=== PATIENT | male | born 1960 | race Caucasian/White ===

== ENCOUNTER 2021-05-06 23:19 | Emergency (ER) | payer SELFPAY ==
[2021-05-07] VITALS: PULSE 87; RESP 20; TEMP 36.9; O2SAT 98
[2021-05-07 00:06] VITALS: BP 126/98; PULSE 87; RESP 18; TEMP 36.9; O2SAT 98
--- NOTE | 2021-05-07 00:09 | PC.NURSE ---
2359-Cleaned patient's left hand, 4th digit, with sterile water, hibclense, and safe cleanse. Patient tolerated well.
--- NOTE | 2021-05-07 00:25 | ED.WOUNDLAC ---
HPI - Wound/Laceration General Chief Complaint: Wound/Laceration Stated Complaint: Laceration Source: patient Mode of arrival: ambulatory History of Present Illness HPI narrative: this is a 52-year-old gentleman that presents with superficial laceration to the left 4th finger approximately 2cm in length non gaping well-approximated currently no bleeding occurred earlier today and is not up-to-date with his tetanus. Currently no fever chills had good range of motion is finger with no numbness or tingling. Onset (ago): hour(s) Location: other ( finger laceration) Extremity Location: Left: hand ( left 4th finger) Place: home Patient tetanus UTD: No Context: accidental Related Data Home Medications Medication Instructions Recorded Confirmed oxycodone-acetaminophen 1 tablet PO BID 05/07/21 05/07/21 Allergies Allergy/AdvReac Type Severity Reaction Status Date / Time No Known Allergies Allergy Verified 05/07/21 00:27 Review of Systems Review of Systems: All systems reviewed & are unremarkable except as noted in HPI and below PMFSH Past Medical History Medical History Chronic back pain Exam Const: General: no acute distress and alert Orientation/consciousness: patient oriented x3 HENMT: Head: normal to inspection Eyes: Conjunctivae: conjunctivae normal Pupils: Equal, round and reactive pupils present Neck: Neck: normal visual inspection Chest: Chest palpation & inspection: normal inspection of the chest Resp: Effort & Inspection: normal respiratory effort Auscultation: clear to auscultation bilaterally Cardio: Rate: regular rate Rhythm: regular rhythm GI: GI Palp: Yes Soft to palpation Percussion: Yes normal to percussion Back/Spine/Pelvis: Back: no CVA tenderness Skin: General skin exam: normal color Rashes: no rashes Other: approximately 2cm early a laceration left 4th finger Neuro: General: patient oriented x3 and moves all extremities Extrem: General: normal to inspection and no pedal edema Psych: Mental Status: mental status grossly normal Course Course Emergency Course: patient had Dermabond applied to his left 4th finger laceration and was updated with his tetanus vaccine Vital Signs Vital signs: Vital Signs Temperature 36.9 C 05/07/21 00:06 Pulse Rate 87 05/07/21 00:06 Respiratory Rate 18 05/07/21 00:06 Blood Pressure 126/98 H 05/07/21 00:06 Pulse Oximetry 98 05/07/21 00:06 Temperature 36.9 C 05/07/21 00:06 Pulse Rate 87 05/07/21 00:06 Respiratory Rate 18 05/07/21 00:06 Blood Pressure 126/98 H 05/07/21 00:06 Pulse Oximetry 98 05/07/21 00:06 Procedures Laceration Laceration 1: Date: 05/07/21 Site: hand ( left 4th finger) Side (If applicable): left Size (cm): 2 Description: linear Pre-repair: irrigated ====== Skin Level ====== Skin layer closed with: dermabond ====== Subcutaneous Layer ====== ====== Muscle Layer ====== ====== Tendon Layer ====== Critical Care Time Critical Care Time Critical Care Time: No Discharge Plan Discharge Clinical Impression: Laceration Patient Disposition: Home, Self-Care Condition: Stable Instructions: Antibiotic Form, Laceration (ED) Additional Instructions: follow-up with primary care physician if symptoms persist or worsen. Prescriptions: No Action oxycodone-acetaminophen 10-325 mg tablet 1 tablet PO BID RF: 0 Follow-up/Referrals: UNKNOWN,DOCTOR [Primary Care Provider] - Time of Disposition: :
[2021-05-07 00:40] VITALS: BP 130/90; PULSE 82; RESP 20; O2SAT 98
[2021-05-07] MEDS: TETANUS,DIPHTHERIA,AC PERTUSSIS ADULT 0.5 ML (ADACEL) IM (00:40)
== END 2021-05-07 00:42 | disposition home or self-care (01) ==
PROVIDERS: Emergency Provider Emergency Medicine
DX: S61.215A Laceration without foreign body of left ring finger without damage to nail, initial encounter (principal); W45.8XXA Other foreign body or object entering through skin, initial encounter
CPT/HCPCS: 12001; 90471; 90715; 99282

== ENCOUNTER 2024-12-12 14:03 | Emergency (ER) | payer MEDICARE, SELFPAY ==
--- NOTE | ~2024-12-12 | US_ITS ---
EXAMINATION: US venous doppler [facility] DATE: 12/12/2024 14:56 INDICATION: left calf swelling . TECHNIQUE: Grayscale images without and with compression and Doppler images of the left lower extremi ty veins were obtained. COMPARISON: None FINDINGS: The left common femoral vein, profunda (deep) femoral vein, femoral vein, popliteal vein, peroneal v ein, posterior tibial veins, gastrocnemius vein, and greater saphenous vein are patent. Incidental no te of occlusion of the proximal-mid superficial femoral artery, with monophasic flow in the popliteal , posterior tibial, and peroneal arteries. 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 No evidenc e of deep venous thrombosis. Reviewed, dictated and finalized at location K. ON HEADER IMPRESSION: Incidental note of right superficial femoral artery occlusion, with distal niall nstitution. No evidence of deep venous thrombosis.
[2024-12-12 14:03] VITALS: BP 163/100; PULSE 86; RESP 18; TEMP 36.3; O2SAT 99
--- NOTE | 2024-12-12 14:21 | ED.LOWEXIN ---
HPI - Extremity Injury (Lower) General Chief Complaint: Extremity Injury, Lower Stated Complaint: left leg swelling Time Seen by Provider: 12/12/24 14:20 Source: patient Mode of arrival: ambulatory Limitations: no limitations History of Present Illness HPI Narrative: 64-year-old male with a history of arthritis of the hips and the knees on oxycodone presents to the ED with -- left calf pain and swelling off and on for the past 1 week. Unable to bear weight. No history of trauma. No prior history of DVTs. -- cramps of the bilateral lower extremities MD complaint: other ( left calf pain) Onset (ago): week(s) ( 1 week) Place: home Severity: severe Relieving factors: nothing Exacerbating factors: nothing Other symptoms: none Related Data Home Medications ?Medication ?Instructions ?Recorded ?Confirmed ?Last Taken ?Type oxycodone-acetaminophen 10 mg-325 1 tablet PO BID 05/07/21 05/07/21 Unknown History mg tablet Allergies Allergy/AdvReac Type Severity Reaction Status Date / Time No Known Allergies Allergy Verified 12/12/24 14:18 Review of Systems Review of Systems: All systems reviewed & are unremarkable except as noted in HPI and below Constitutional: Constitutional: Reports as per HPI and Reports no additional constitutional complaints Eyes: Eyes: Reports as per HPI and Reports no additional eye complaints ENT: Reports system reviewed and no additional complaints, except as documented and Reports as per HPI Cardiovascular: Cardiovascular: Reports as per HPI and Reports no additional cardiovascular complaints Respiratory: Respiratory: Reports as per HPI and Reports no additional respiratory complaints Gastrointestinal: Gastrointestinal: Reports as per HPI and Reports no additional gastrointestinal complaints Genitourinary: Genitourinary: Reports no additional male genitourinary complaints and Reports as per HPI Musculoskeletal: Comments: left calf pain and swelling. Pain in left popliteal fossa able to bear weight Integumentary/Breasts: Skin/Breast: Reports system reviewed and no additional complaints, except as docu and Reports as per HPI Neurologic: Reports system reviewed and no additional complaints, except as documented and Reports as per HPI Psychiatric: Psychiatric: Reports no additional psychiatric complaints and Reports as per HPI Endocrine: Endocrine: Reports no additional endocrine complaints and Reports as per HPI Hematologic/Lymphatic: Hematologic/Lymphatic: Reports no additional hematologic/lymphatic complaints and Reports as per HPI Allergic/Immunologic: Allergic/Immunologic: Reports no additional allergic/immunologic complaints and Reports as per HPI [facility] Past Medical History Medical History Chronic back pain Exam Const: General: ill appearing Orientation/consciousness: patient oriented x3 Limitations: no limitations HENMT: Head: normal to inspection Ears: external ears normal Face/Nose/Sinus: Normal external nose present Face and sinus: normal facial exam Mouth: Yes Normal oral and palatal mucosa present Throat: posterior oropharynx normal Eyes: Conjunctivae: conjunctivae normal Pupils: Equal, round and reactive pupils present EOM: EOMs intact bilaterally Direct Ophthalmoscopy: no photophobia Neck: Neck: normal visual inspection, no lymphadenopathy and no meningeal signs Resp: Effort & Inspection: normal respiratory effort Auscultation: diminished lung sounds Cardio: Rate: regular rate Rhythm: regular rhythm GI: GI Palp: Yes Soft to palpation Auscultation: normal bowel sounds Other: no tenderness /rigidity / rebound. : General: Yes no CVA tenderness Back/Spine/Pelvis: Back: no CVA tenderness Skin: General skin exam: normal color Rashes: no rashes Wounds: no wounds Neuro: General: patient oriented x3, moves all extremities, no meningeal signs, no focal motor deficits and CN's II-XI intact bilaterally Cranial nerves: Yes Nystagmus not present Speech: normal speech Extrem: Other: Left calf swelling. Tenderness on palpation. Distal pulses are intact. Psych: Mental Status: mental status grossly normal Affect: normal affect Attitude: cooperative Course Course Emergency Course: Left calf pain-- venous Doppler did not show any evidence of DVT but revealed occlusion of the superficial femoral artery. The patient has ischemia without tissue loss or infection. S start the patient on Plavix, statins, avoid weight-bearing on the left side and follow-up with vascular surgery. Discussed with Dr. Edmondson vascular surgery at [facility] in [facility]. Discussed with vascular surgeon. Patient does not need emergent transfer. Scheduled the patient for an outpatient visit at [place] on December 21 at 8:45 a.m. repeat potassium was noted to be 4.7. Vital Signs Vital signs: Vital Signs Temperature 36.3 C L 12/12/24 14:03 Pulse Rate 86 12/12/24 14:03 Respiratory Rate 18 12/12/24 14:03 Blood Pressure 163/100 H 12/12/24 14:03 Pulse Oximetry 99 12/12/24 14:03 Oxygen Delivery Room Air 12/12/24 14:03 Temperature 36.3 C L 12/12/24 14:03 Pulse Rate 86 12/12/24 14:03 Respiratory Rate 18 12/12/24 14:03 Blood Pressure 163/100 H 12/12/24 14:03 Pulse Oximetry 99 12/12/24 14:03 Oxygen Delivery Room Air 12/12/24 14:03 MDM - Extremity Injury (Lower) MDM Narrative Medical decision making narrative: Left leg ischemia-- No tissue loss or infection. Differential Diagnosis Differential diagnosis: Likely other ( DVT) Lab Data Attestation: I reviewed the patient's lab results. 12/12/24 14:36 12/12/24 15:28 Labs: Lab Results 12/12/24 12/12/24 12/12/24 Range/Units 14:35 14:36 15:28 WBC 11.2 H (4.8-10.8) K/mm3 RBC 5.41 (4.70-6.10) M/mm3 Hgb 16.2 (14.0-18.0) g/dL Hct 50.1 (40.0-54.0) % MCV 92.6 (78.0-102.0) fL MCH 29.9 (27.0-31.0) pg MCHC 32.3 (32-36) g/dL RDW 14.3 (11.6-14.4) % Plt Count 358 (150-420) K/mm3 MPV 9.5 (8.7-11.0) fl Immature Gran % (Auto) 0.4 H (0.0-0.0) % Neut % (Auto) 74.1 H (50.0-70.0) % Lymph % (Auto) 18.0 (18.0-42.0) % [place] % (Auto) 6.4 (2.0-11.0) % Eos % (Auto) 0.7 L (1.0-6.0) % Baso % (Auto) 0.4 (0.0-1.0) % Lymph # (Auto) 2.01 (1.10-4.50) K/mm3 [place] # (Auto) 0.72 (0.10-0.90) K/mm3 Eos # (Auto) 0.08 (0.02-0.50) K/mm3 Baso # (Auto) 0.04 (0.00-0.10) K/mm3 Abs Immat Gran (auto) 0.05 H (0.00-0.00) K/mm3 Absolute Neuts (auto) 8.29 H (1.70-7.20) K/mm3 Absolute Nucleated RBC 0.00 (0.00-0.00) K/mm3 Nucleated RBC % 0.0 (0-0.0) % D-Dimer 0.50 (0.19-0.50) mg/L Sodium 139 (136-145) mmol/L Potassium 5.4 H 4.7 (3.5-5.1) mmol/L Chloride 104 (98-108) mmol/L Carbon Dioxide 27 (21-32) mmol/L Anion Gap 8 (4-12) mmol/L BUN 20 H (7-18) mg/dL Creatinine 1.02 (0.70-1.30) mg/dL Estim Creat Clear Calc 90 ml/min Estimated GFR > 60 (59 - ) Glucose 140 H (70-99) mg/dL Calculated Osmolality 292 (285-295) mOsm/kg Uric Acid 7.1 (3.5-7.2) mg/dL Calcium 9.4 (8.5-10.1) mg/dL Total Bilirubin 0.4 (0.00-1.00) mg/dL AST 19 (15-37) U/L ALT 27 (16-63) U/L Alkaline Phosphatase 100 (46-116) U/L Total Creatine Kinase 224 (39-308) U/L Total Protein 7.6 (6.4-8.2) g/dL Albumin 3.9 (3.4-5.0) g/dL Discharge Plan Discharge Clinical Impression: Ischemic leg pain Patient Disposition: Home, Self-Care Condition: Stable Instructions: Antibiotic Form, Peripheral Vascular Disease (ED) Patient Language: French Prescriptions: New clopidogrel [Plavix] 75 mg tablet 75 mg PO DAILY Qty: 30 0RF atorvastatin [Lipitor] 40 mg tablet 40 mg PO HS Qty: 30 0RF No Action oxycodone-acetaminophen 10-325 mg tablet 1 tablet PO BID Follow-up/Referrals: Jatin,Darryl Worrell DO [Primary Care Provider] - Time of Disposition: 16:09
--- NOTE | 2024-12-12 14:36 | PC.NURSE ---
PT TO ULTRASOUND AT THIS TIME.
[2024-12-12 14:40] LABS: Basophils Absolute Auto 0.04 K/mm3 (0.00-0.10); Basophils Percent Auto 0.4 % (0.0-1.0); Eosinophils Absolute Auto 0.08 K/mm3 (0.02-0.50); Eosinophils Percent Auto 0.7 % (1.0-6.0); Hematocrit 50.1 % (40.0-54.0); Hemoglobin 16.2 g/dL (14.0-18.0); Immature Granulocyte Absolute 0.05 K/mm3 (0.00-0.00); Immature Granulocyte Percent A 0.4 % (0.0-0.0); Lymphocytes Absolute Auto 2.01 K/mm3 (1.10-4.50); Mean Corpuscular HGB Conc 32.3 g/dL (32-36); Mean Corpuscular Hemoglobin 29.9 pg (27.0-31.0); Mean Corpuscular Volume 92.6 fL (78.0-102.0); Mean Platelet Volume 9.5 fl (8.7-11.0); Monocytes Absolute Auto 0.72 K/mm3 (0.10-0.90); Monocytes Percent Auto 6.4 % (2.0-11.0); Neutrophils Absolute Auto 8.29 K/mm3 (1.70-7.20); Neutrophils Percent Auto 74.1 % (50.0-70.0); Platelet Count Result 358 K/mm3 (150-420); Red Blood Count 5.41 M/mm3 (4.70-6.10); Red Cell Distribution Width 14.3 % (11.6-14.4); White Blood Count 11.2 K/mm3 (4.8-10.8)
[2024-12-12 14:53] LABS: Uric Acid 7.1 mg/dL (3.5-7.2)
[2024-12-12 14:55] LABS: Alanine Aminotransferase 27 U/L (16-63); Albumin Level 3.9 g/dL (3.4-5.0); Alkaline Phosphatase 100 U/L (46-116); Anion Gap 8 mmol/L (4-12); Aspartate Amino Transferase 19 U/L (15-37); Bilirubin,Total 0.4 mg/dL (0.00-1.00); Blood Urea Nitrogen 20 mg/dL (7-18); Calcium 9.4 mg/dL (8.5-10.1); Carbon Dioxide 27 mmol/L (21-32); Chloride 104 mmol/L (98-108); Creatine Kinase 224 U/L (39-308); Estimated CRCL calculation 90 ml/min; Estimated Glomerular Filt Rate > 60; Glucose 140 mg/dL (70-99); Osmolality Calculated 292 mOsm/kg (285-295); Potassium 5.4 mmol/L (3.5-5.1); Sodium 139 mmol/L (136-145); Total Protein 7.6 g/dL (6.4-8.2)
--- OUTSIDE RECORDS SUMMARY | 2024-12-12 15:06 | XMS_ITS | Encounter Summary ---
Author Organization [facility] Address Formerly [facility]. 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
--- OUTSIDE RECORDS SUMMARY | 2024-12-12 15:06 | XMS_ITS | Clinical Summary ---
Author Organization [facility] Address [address] [place] [id number] Care Team Providers Care Oncology Nurse Name Role Phone Darryl Steiner DO Primary Care Provider Allergies No known active allergies Medications oxyCODONE-aceta minophen (PERCOCET) 5-325 mg per tablet Take 1 tablet by mouth every 6 (six) hours as needed for pain 120 tablet 5 Active oxyCODONE-aceta minophen (PERCOCET) 5-325 mg per tablet Take 1 tablet by mouth every 6 (six) hours as needed for pain 120 tablet 5 Active oxyCODONE-aceta minophen (PERCOCET) 5-325 mg per tablet Take 1 tablet by mouth every 6 (six) hours as needed for pain 120 tablet 5 12/08/19 25 Discontinu ed(Reorder ) Active Problems Problem Noted Date Diagnosed Date Routine physical examination 06/20/2024 Overview (06/20/2024): March 04, 2023 June 20, 2024 Hyperlipidemia 12/03/2018 IFG (impaired fasting glucose) 12/03/2018 Chronic narcotic dependence (CMS/HCC) 11/10/2017 Overview (06/20/2024): Chronic neck and low back pain with prior cervical and lumbar spine surgery with hardware placement Requires daily narcotic medication Continue to monitor medication usage Chronic pain 11/10/2017 Overview (06/20/2024): Chronic neck and low back pain with prior cervical and lumbar spine surgery with hardware placement Requires daily narcotic medication Continue to monitor medication usage Hypertension 11/10/2017 Overview (06/20/2024): Chronic and overall stable not on medication Assessment & Plan (06/20/2024 2:35 PM CDT): His anxiety is high and he just found out that 1 of his brothers 6-8 years ago Backache 08/28/2017 Overview (06/20/2024): Chronic low back pain with prior surgery and fusion with hardware placement approximately [id number] Chronic pain requires daily narcotic medication Continue same medications Neck pain 08/28/2017 Overview (06/20/2024): Chronic neck pain status post fusion with hardware placement Requires daily narcotic medication Continue same medications Resolved Problems Problem Noted Date Diagnosed Date Resolved Date Cellulitis 05/28/2020 06/20/2024 Encounters Date Type Department Care Team Description 10/26/2024 Telephone [facility] Primary Care [facility] [address] [phone] Darryl Steiner, DO Call Back from Last 3 Months Immunizations Name Administration Dates Next Due Influenza, Unspecified 08/15/2023 Tdap 05/28/2017 Family History Medical History Relation Name Comments Migraines Father brain tumor Father Depression Mother Hypertension Mother Relation Name Status Comments Father Mother Social History Tobacco Use Types Packs/Day Years Used Date Smoking Tobacco: Every Day Cigarettes AUDIT-C Answer Date Recorded Q1: How often do you have a drink containing alc ohol? 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 Gender Identity Not on file Sexual Orientation Not on file Obstetrics History Last Filed Vital Signs Vital Sign Reading Time Taken Comments Blood Pressure 140/100 06/20/2024 2:08 PM CDT Pulse 92 06/20/2024 2:08 PM CDT Temperature 36.1 ??C (97 ??F) 06/20/2024 2:08 PM CDT Respiratory Rate 16 06/20/2024 2:08 PM CDT Oxygen Saturation 97% 06/20/2024 2:08 PM CDT Inhaled Oxygen Concentration - - Weight 112.5 kg (248 lb) 06/20/2024 2:08 PM CDT Height 189.2 cm (6' 2.5 ) 06/20/2024 2:08 PM CDT Body Mass Index 31.42 06/20/2024 2:08 PM CDT Plan of Treatment Health Maintenance Due Date Last Done Comments Colon Cancer Screening-Colonoscopy 1962 Pneumococcal vaccine <65 (1 of 2 - PCV) 1968 Hepatitis B Screening 1980 Covid-19 Vaccine (3 - season) 2024, 02/07/2021 Influenza Vaccine (#1) 2024 08/15/2023 Depression Screening 06/20/2025 06/20/2024 Regular Well Visit/Exam 18-64 06/20/2025 06/20/2024 Prostate Cancer Screening-PSA 06/20/2026 06/20/2024 DTaP/Tdap/Td Vaccine (3 - Td or Tdap) 05/07/2031, 05/28/2017 Hepatitis C Screening Completed 06/20/2024 Zoster Vaccine Discontinued Procedures Procedure Name Priority Date/Time Associated Diagnosis Comments STOOL DNA ? COLOGUARD Routine 10/17/2024 10:00 AM CERAMIC TILE INSTALLATION HELPER Colon cancer screening HEPATITIS C ANTIBODY Routine 06/20/2024 3:00 PM CDT Need for hepatitis C screening test PSA SCREEN Routine 06/20/2024 3:00 PM CDT Prostate cancer screening from Last 3 Months or Most Recently Relevant to Health Maintenance Results * (ABNORMAL) Stool DNA - Cologuard (10/17/2024 10:00 AM CERAMIC TILE INSTALLATION HELPER) Stool DNA - Cologuard Positive( A) Negative [facility] (CLIA #:[id number]) Comment: POSITIVE TEST RESULT. A positive Cologuard result should be followed with a colonoscopy or visual examination of the colon. The normal value (reference range) for this assay is negative. TEST DESCRIPTION: Composite algorithmic analysis of stool DNA-biomarkers with hemoglobin immunoassay. ?? Quantitative values of individual biomarkers are not reportable and are not associated with individual biomarker result reference ranges. Cologuard is intended for colorectal cancer screening of adults of either sex, 45 years or older, who are at average-risk for colorectal cancer (CRC). Cologuard has been approved for use by the U.S. FDA. The performance of Cologuard was established in a cross sectional study of average-risk adults aged 50-84. Cologuard performance in patients ages 45 to 49 years was estimated by sub-group analysis of near-age groups. Colonoscopies performed for a positive result may find as the most clinically significant lesion: colorectal cancer [4.0%], advanced adenoma (including sessile serrated polyps greater than or equal to 1cm diameter) [20%] or non- advanced adenoma [31%]; or no colorectal neoplasia [45%]. These estimates are derived from a prospective cross-sectional screening study of 10,000 individuals at average risk for colorectal cancer who were screened with both Cologuard and colonoscopy. (Giorgio Beckford et al, N Engl J Med 2014;370(14):7330-4158.) Cologuard may produce a false negative or false positive result (no colorectal cancer or precancerous polyp present at colonoscopy follow up). A negative Cologuard test result does not guarantee the absence of CRC or advanced adenoma (pre-cancer). The current Cologuard screening interval is every 3 years. ([place] Cancer Society and U.S. Multi-Society Task Force). Cologuard performance data in a 10,000 patient pivotal study using colonoscopy as the reference method can be accessed at the following location: [email or web address].InSample/results. Additional description of the Cologuard test process, warnings and precautions can be found at www.[facility].com. Stool 10/17/2024 10:0 0 AM CERAMIC TILE INSTALLATION HELPER 10/19/2024 9:59 AM CERAMIC TILE INSTALLATION HELPER Darryl Steiner DO LAB BODY FLUIDS AND ST OOLS ORDERABLES Final Result Performing Organization Address [facility] Co de Phone Number [facility] (CLIA #:[id number]) Aarti Espinal[place] [address] * PSA screen (06/20/2024 3:00 PM CDT) PSA-Total 1.12 <=5.40 ng/mL Comment: Interpretive Data ?AGE ? SEX ?REFERENCE INTERVAL 0 minutes-150 years ?Female ?None 0 minutes-49 years ? Male ?None ? 50-59 years ? Male ?0-3.90 ? 60-69 years ? Male ?0-5.40 ? 70-79 years ? Male ?0-6.20 ? 80-150 years ?Male ?0-6.20 The Jimbo PSA Total assay procedure was used. Results from different manufacturers or methods may not be comparable. Serial testing should be performed using the same method. Current interpretive data last revised 22. Testing performed by: [facility], [address] [place] [address]., [id number] Blood 06/20/2024 3:00 PM CDT 06/20/2024 4:32 PM CDT Darryl Steiner DO LAB BLOOD ORDERABLES F inal Result Performing Organization Address [facility] de Phone Number [facility] [address] [facility] Department [place] [address] * Hepatitis C antibody Blood (06/20/2024 3:00 PM CDT) Hep C Ab Nonreactive Nonreactive Comment: Antibodies to HCV not detected. Does NOT exclude the possibility of recent exposure to HCV. Current interpretive data was last revised on 22 Interpretive Data Nonreactive: Antibodies to HCV not detected. Does NOT exclude the possibility of recent exposure to HCV. Equivocal: Equivocal for HCV antibodies. Supplemental molecular testing will be automatically performed to determine infection status in accordance with current CDC screening recommendations. ?? Reactive: Positive for HCV antibodies. ??This may represent current or past HCV infection. Supplemental molecular testing will be automatically performed to determine ??current infection status in accordance with current CDC screening recommendations. Interpretive data was last revised on 2020. Blood 06/20/2024 3:00 PM CDT 06/20/2024 7:16 PM CDT Darryl Steiner DO LAB MICROBIOLOGY - GEN ERAL ORDERABLES Final Result [facility] [address] [facility] Department [place] [address] from Last 3 Months or Most Recently Relevant to Health Maintenance Insurance MEDICARE [facility] MEDICARE Address: [facility] [address] [place] [address] Care Teams Oncology Nurse Relationship Specialty Start Date End Date Darryl Steiner DO [address] [place] [id number] PCP - General Family Medicine 02/23/24
--- OUTSIDE RECORDS SUMMARY | 2024-12-12 15:06 | XMS_ITS | Encounter Summary ---
Author Organization [facility] Address [address] [place] [address]. 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
--- OUTSIDE RECORDS SUMMARY | 2024-12-12 15:06 | XMS_ITS | Clinical Summary ---
Author Organization [facility] Address [address] [place] [address]. [place], [place] [address] [place] [address] Care Team Providers Care Member Services Coordinator Name Role Phone Darryl Steiner DO Primary Care Provider Allergies No known active allergies Medications oxyCODONE-aceta minophen (PERCOCET) 10-325 MG tabletIndicatio ns:Chronic pain TAKE ONE TABLET BY MOUTH EVERY EIGHT HOURS NEEDED FOR PAIN 90 tablet 06/09/2023 Active oxyCODONE-aceta minophen (PERCOCET) 5-325 MG tabletIndicatio ns:Chronic Pain Indications: Chronic Pain TAKE TWO TABLETS BY MOUTH THREE TIMES A DAY NEEDED FOR PAIN 180 tablet 10/28/2023 Active Active Problems Problem Noted Date Diagnosed Date Cellulitis, unspecified cellulitis site 05/28/20 Colonoscopy refused 12/13/2018 Hyperlipidemia 12/03/2018 IFG (impaired fasting glucose) 12/03/2018 Chronic narcotic dependence ([facility]) Chronic pain 11/10/2017 Hypertension 11/10/2017 Backache 08/28/2017 Neck pain 08/28/2017 Resolved Problems Problem Noted Date Diagnosed Date Resolved Date Encounter for prostate cancer screening 12/03/2018 07/20/2020 Encounter for preventive health examination 08/27/2017 07/20/2020 Immunizations Name Administration Dates Next Due Tdap (Generic) 05/28/2017 Social History Tobacco Use Types Packs/Day Years Used Date Smoking Tobacco: Every Day Smokeless Tobacco: Never PHQ-2 Answer Date Recorded Patient Health Questionnaire-2 Score 0 03/04/2023 Sex and Gender Information Value Date Recorded Sex Assigned at Not on file 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 Gender Identity Not on file Sexual Orientation Not on file Occupation Industry Job Start Date Job End Date Not on file Not on file Not on file Not on file Last Filed Vital Signs Vital Sign Reading Time Taken Comments Blood Pressure 148/90 03/04/2023 2:05 PM CDT Pulse 86 03/04/2023 2:05 PM CDT Temperature - - Respiratory Rate - - Oxygen Saturation - - Inhaled Oxygen Concentration - - Weight 119.3 kg (263 lb) 03/04/2023 2:05 PM CDT Height 188 cm (6' 2 ) 03/04/2023 2:05 PM CDT Body Mass Index 33.77 03/04/2023 2:05 PM CDT Plan of Treatment Health Maintenance Due Date Last Done Comments Colorectal Cancer Screening Colonoscopy (10 Years) 1962 Pneumococcal Vaccine: Pediatrics (0 to 5 Years) and At-Risk Patients (6 to 64 Years) (1 of 2 - PCV) 1968 Hepatitis C 1980 Zoster Vaccines (1 of 2) 2012 Annual Physical 03/04/2024 03/04/2023, 04/0 02/2022, 01/04/2021, Additional history exists COVID-19 Vaccine ( - 2023- season) 2024 Influenza Adult (#1) 2024 DTaP, Tdap and Td Vaccines (2 - Td or Tdap) 05/28/2027 05/28/2017 RSV Immunization or 60+ Years (1 - 1-dose 75+ series) 2037 Colorectal Cancer Screening FIT-DNA (3 Years) Discontinued 05/01/2020 Meningococcal B Vaccine Aged Out No l onger eligible based on patient's age to complete this topic Meningococcal Vaccine Aged Out No enoc monse eligible based on patient's age to complete this topic RSV Immunizations Under 20 Months Aged Out No longer eligible based on patient's age to complete this topic Procedures Procedure Name Priority Date/Time Associated Diagnosis Comments COLOGUARD (SCAN ORDER) Routine 05/01/2020 from Last 3 Months or Most Recently Relevant to Health Maintenance Results * COLOGUARD (SCAN) (05/01/2020) Stool specimen (specimen) us Documents Scanned SCANNING Final Result [facility] from Last 3 Months or Most Recently Relevant to Health Maintenance Insurance [employer] Care Teams Member Services Coordinator Relationship Specialty Start Date End Date Darryl Steiner DO PCP - General FAMILY PRACTICE 03/24/19
--- OUTSIDE RECORDS SUMMARY | 2024-12-12 15:06 | XMS_ITS | Referral Summary ---
Author Organization [facility] Address [address] [place] [address] Care Team Providers Care Feeder Driver Name Role Phone Darryl Steiner DO Primary Care Provider Encounters Date Type Department Care Team Description 10/26/2024 Telephone [facility] Primary Care [address] [facility] [address] [place] [phone] Darryl Steiner DO Call Back from Last 3 Months Allergies No known active allergies Medications oxyCODONE-aceta [...] surgery and fusion with hardware placement approximately 7153-6203 Chronic pain requires daily narcotic medication Continue same medications Neck pain 08/28/2017 Overview (06/20/2024): Chronic neck pain status post fusion with hardware placement Requires daily narcotic medication Continue same medications Resolved Problems Problem Noted Date Diagnosed Date Resolved Date Cellulitis 05/28/2020 06/20/2024 Immunizations Name Administration Dates Next Due Influenza, Unspecified 08/15/2023 Tdap 05/28/2017 Social History Tobacco Use Types Packs/Day [...] on file 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 COLOGUARD Routine 10/17/2024 10:00 AM REGASIFICATION PLANT OPERATOR Colon cancer screening HEPATITIS C ANTIBODY Routine 06/20/2024 3:00 PM CDT Need for hepatitis C screening test PSA SCREEN Routine 06/20/2024 3:00 PM CDT Prostate cancer screening from Last 3 Months or Most Recently Relevant to Health Maintenance Results * (ABNORMAL) Stool DNA - Cologuard (10/17/2024 10:00 AM REGASIFICATION PLANT OPERATOR) Stool DNA - Cologuard Positive( A) Negative [id number] (CLIA #:[id number]) Comment: POSITIVE TEST RESULT. A positive Cologuard [...] screened with both Cologuard and colonoscopy. (Giorgio Aguirre al, N Engl J Med 2014;370(14):6807-0461.) Cologuard may produce a false negative or false positive result (no colorectal cancer or precancerous polyp present at colonoscopy follow up). A negative Cologuard test result does not guarantee the absence of CRC or advanced adenoma (pre-cancer). The current Cologuard screening interval is every 3 years. ([place] Cancer Society and U.S. Multi-Society Task Force). Cologuard performance data in a 10,000 patient pivotal study using colonoscopy as the reference method can be accessed at the following location: www.Voice Assist/results. Additional description of the Cologuard test process, warnings and precautions can be found at www.[employer].com. Stool 10/17/2024 10:0 0 AM REGASIFICATION PLANT OPERATOR 10/19/2024 9:59 AM REGASIFICATION PLANT OPERATOR Darryl Steiner DO LAB BODY FLUIDS AND ST OOLS ORDERABLES Final Result [employer] (CLIA #:[id number]) [place] [address] * PSA screen (06/20/2024 3:00 PM CDT) [...] data last revised 22. Testing performed by: [facility], [address] [place] [address]., [address] Blood 06/20/2024 3:00 PM CDT 06/20/2024 4:32 PM CDT Darryl Yip [place] DO LAB BLOOD ORDERABLES F inal Result [facility] [address] [facility] Department [place] [address] * Hepatitis C antibody Blood (06/20/2024 3:00 [...] MICROBIOLOGY - GEN ERAL ORDERABLES Final Result [facility] [address] [facility] Department [place] [address] from Last 3 Months or Most Recently Relevant to Health Maintenance Insurance MEDICARE SOLUTIONS Care Teams Feeder Driver Relationship Specialty Start Date End Date Darryl Steiner DO [address] [place] [phone] PCP - General Family Medicine 02/23/24
--- OUTSIDE RECORDS SUMMARY | 2024-12-12 15:32 | XMS_ITS | Encounter Summary ---
Author Organization [facility] Address [address] [place] [address]. 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
--- OUTSIDE RECORDS SUMMARY | 2024-12-12 15:32 | XMS_ITS | Encounter Summary ---
Author Organization [facility] Address [facility]. 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
--- OUTSIDE RECORDS SUMMARY | 2024-12-12 15:32 | XMS_ITS | Referral Summary ---
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 COLOGUARD Routine 10/17/2024 10:00 AM SUBWAY TRAIN DRIVER Colon cancer screening HEPATITIS C ANTIBODY Routine 06/20/2024 3:00 PM CDT Need for hepatitis C screening test PSA SCREEN Routine 06/20/2024 3:00 PM CDT Prostate cancer screening from Last 3 Months or Most Recently Relevant to Health Maintenance Results * (ABNORMAL) Stool DNA - Cologuard (10/17/2024 10:00 AM SUBWAY TRAIN DRIVER) Stool DNA - Cologuard Positive( A) Negative [employer] (CLIA #:[id number]) Comment: POSITIVE TEST RESULT. A positive Cologuard [...] (Giorgio Aguirre al, N Engl J Med 2014;370(14):9991-6613.) Cologuard may produce a false negative or false positive result (no colorectal cancer or precancerous polyp present at colonoscopy follow up). A negative Cologuard test result does not guarantee the absence of CRC or advanced adenoma (pre-cancer). The current Cologuard screening interval is every 3 years. ([place] Cancer Society and U.S. Multi-Society Task Force). Cologuard performance data in a 10,000 patient pivotal study using colonoscopy as the reference method can be accessed at the following location: www.algrano/results. Additional description of the Cologuard test process, warnings and precautions can be found at www.[email or web address]. Stool 10/17/2024 10:0 0 AM SUBWAY TRAIN DRIVER 10/19/2024 9:59 AM SUBWAY TRAIN DRIVER Darryl Steiner DO LAB BODY FLUIDS AND ST OOLS ORDERABLES Final Result [employer] (CLIA #:[id number]) [place] [address] * PSA screen (06/20/2024 3:00 PM CDT) [...] data last revised 22. Testing performed by: [facility], [address] [place] [address]., [address] Blood 06/20/2024 3:00 PM CDT 06/20/2024 4:32 PM CDT Darryl Yip [place] DO LAB BLOOD ORDERABLES F inal Result [facility] [address] [facility] Department [place] [address] * Hepatitis C antibody Blood [...] GEN ERAL ORDERABLES Final Result [facility] [address] [facility] Department [place] [address] from Last 3 Months or Most Recently Relevant to Health Maintenance Insurance MEDICARE SOLUTIONS Care Teams Check Processing Clerk Relationship Specialty Start Date End Date Darryl Steiner DO [address] [place] [phone] PCP - General Family Medicine 02/23/24
--- OUTSIDE RECORDS SUMMARY | 2024-12-12 15:32 | XMS_ITS | Clinical Summary ---
Author Organization [facility] Address [address] [place] [phone] Care Team Providers Care Car Blocker Name Role Phone Darryl Steiner DO Primary [...] surgery and fusion with hardware placement approximately 2023-0106 Chronic pain requires daily narcotic medication Continue same medications Neck pain 08/28/2017 Overview (06/20/2024): Chronic neck pain status post fusion with hardware placement Requires daily narcotic medication Continue same medications Resolved Problems Problem Noted Date Diagnosed Date Resolved Date Cellulitis 05/28/2020 06/20/2024 Encounters Date Type Department Care Team Description 10/26/2024 Telephone [facility] Primary Care [facility] [address] [phone] Darryl Steiner, DO Call Back [...] on file 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 COLOGUARD Routine 10/17/2024 10:00 AM FISH CUTTING MACHINE OPERATOR Colon cancer screening HEPATITIS C ANTIBODY Routine 06/20/2024 3:00 PM CDT Need for hepatitis C screening test PSA SCREEN Routine 06/20/2024 3:00 PM CDT Prostate cancer screening from Last 3 Months or Most Recently Relevant to Health Maintenance Results * (ABNORMAL) Stool DNA - Cologuard (10/17/2024 10:00 AM FISH CUTTING MACHINE OPERATOR) Stool DNA - Cologuard Positive( A) Negative [employer] (CLIA #:[id number]) Comment: POSITIVE TEST RESULT. A positive Cologuard [...] Beckford et al, N Engl J Med 2014;370(14):4067-6658.) Cologuard may produce a false negative or false positive result (no colorectal cancer or precancerous polyp present at colonoscopy follow up). A negative Cologuard test result does not guarantee the absence of CRC or advanced adenoma (pre-cancer). The current Cologuard screening interval is every 3 years. ([place] Cancer Society and U.S. Multi-Society Task Force). Cologuard performance data in a 10,000 patient pivotal study using colonoscopy as the reference method can be accessed at the following location: www.QuarterSpot.pyco/results. Additional description of the Cologuard test process, warnings and precautions can be found at www.[employer].com. Stool 10/17/2024 10:0 0 AM FISH CUTTING MACHINE OPERATOR 10/19/2024 9:59 AM FISH CUTTING MACHINE OPERATOR Darryl Steiner DO LAB BODY FLUIDS AND ST OOLS ORDERABLES Final Result Performing Organization Address [facility] Co de Phone Number [facility] [employer] (CLIA #:[id number]) [address] [place] [address] * PSA screen (06/20/2024 3:00 PM CDT) [...] data last revised 22. Testing performed by: [facility], [address] [place] [address]., [id number] Blood 06/20/2024 3:00 PM CDT 06/20/2024 4:32 PM CDT Darryl Steiner DO LAB BLOOD ORDERABLES F inal Result Performing Organization Address [facility] de Phone Number [facility] [address] [facility] Department [place] [address] * Hepatitis C antibody Blood (06/20/2024 3:00 [...] MICROBIOLOGY - GEN ERAL ORDERABLES Final Result [facility] [address] [facility] Department [place] [address] from Last 3 Months or Most Recently Relevant to Health Maintenance Insurance [facility] MEDICARE Address: [facility] [address] [place] [address] Care Teams Car Blocker Relationship Specialty Start Date End Date Darryl Steiner DO [address] [place] [address] PCP - General Family Medicine 02/23/24
--- OUTSIDE RECORDS SUMMARY | 2024-12-12 15:32 | XMS_ITS | Clinical Summary ---
Author Organization [facility] Address [address] [place] [address]. 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
[2024-12-12 15:44] LABS: Potassium 4.7 mmol/L (3.5-5.1)
[2024-12-12] MEDS: CLOPIDOGREL BISULFATE 75 MG TABLET PO (16:22)
[2024-12-12 16:30] VITALS: BP 158/98; PULSE 82; RESP 18; O2SAT 99
--- NOTE | 2024-12-12 16:34 | PC.NURSE ---
+PEDAL PULSE, FOOT AND TOES ARE WARM UPON DC. PT CONTINUES TO COMPLAIN OF PAIN, ERP IS AWARE. PT HAS FOLLOW UP APPOINTMENT WITH DR SOLANO-VASCULAR ON 12/21/24 AT 0845 IN [facility] [facility]; [address] [facility] . PT HAS BEEN PROVIDED A COPY OF HIS ULTRASOUND RESULTS AND RADIOLOGY DISC. PT VERBALIZED UNDERSTANDING. HE DECLINED TRANSFER OR FOLLOW UP IN [facility] OR [facility] DUE TO TRANSPORTATION ISSUES.
== END 2024-12-12 16:30 | disposition home or self-care (01) ==
PROVIDERS: Emergency Provider Internal Medicine Critical Care Medicine; PCP Family Medicine
DX: I99.8 Other disorder of circulatory system (principal); Z79.891 Long term (current) use of opiate analgesic
CPT/HCPCS: 36415; 80053; 82550; 84132; 84550; 85025; 85380; 93971; 99284; A9270